=== PATIENT | female | born 1965 | race Asian ===

== ENCOUNTER 2018-08-06 06:39 | Emergency (ER) | payer BC ==
--- NOTE | 2018-08-06 07:02 | ED ---
Lower Extremity - HPI Summary HPI Summary: Medical leave and walk around patient presents with abrupt onset right knee pain while walking to the grass yesterday. She reports she heard a snap and then had difficulty walking on this leg due to pain. She denies numbness, tingling, weakness, instability but has pain at rest as well as with flexion and weightbearing. She tried to rest yesterday without relief. Took a Vicodin this morning and still having pain. She is not taking any anti-inflammatories. She denies any previous issues with this knee as well as lower extremity however she does have a history of extensive injury in her left lower extremity requiring surgical repair with rods, platelets, etc. She has been fairly active throughout her life and reports going to her computer trainer yesterday to perform her leg workout. No acute injury or pain however she has been sore. Denies recent use of fluoroquinolones however she did receive a steroid injection to the left shoulder 3 weeks ago for tendinopathy. Follows with Dr. Baugh. - History of Current Complaint Chief Complaint: EDExtremityLower Stated Complaint: RT ANKLE INJURY Time Seen by Provider: 08/06/18 07:01 Hx Obtained From: Patient Pain Intensity: 8 - Allergies/Home Medications Allergies/Adverse Reactions: Allergies Allergy/AdvReac Type Severity Reaction Status Date / Time acetaminophen [From Percocet] Allergy See Comment Verified 08/06/18 06:47 amoxicillin Allergy Hives Verified 08/06/18 06:47 ketorolac [From Toradol] Allergy See Comment Verified 08/06/18 06:47 oxycodone [From Percocet] Allergy See Comment Verified 08/06/18 06:47 Home Medications: Home Medications NK [No Home Medications Reported] 08/06/18 [History Confirmed 08/06/18] PMH/Surg Hx/FS Hx/Imm Hx Previously Healthy: Yes Endocrine/Hematology History: Reports: Hx Diabetes - better controlled w/ insulin Denies: Hx Anticoagulant Therapy Musculoskeletal History: Reports: Hx Orthopedic Injury - Lt shoulder tendinopathy; Lt LE trauma w/ surgical repair Sensory History: Reports: Hx Contacts or Glasses Opthamlomology History: Reports: Hx Contacts or Glasses Infectious Disease History: No Infectious Disease History: Denies: Traveled Outside the [place] in Last 30 Days - Family History Known Family History: Positive: Cardiac Disease, Diabetes - Social History Occupation: Employed Full-time - IT dept at [employer] Lives: With Family Alcohol Use: None Hx Substance Use: No Substance Use Type: Reports: None Hx Tobacco Use: Yes - quit 2 weeks ago Smoking Status (MU): Former Smoker Review of Systems Constitutional: Negative Negative: Fever, Chills, Fatigue Positive: no symptoms reported Positive: Arthralgia, Edema Skin: Negative Neurological: Negative Psychological: Normal All Other Systems Reviewed And Are Negative: Yes Physical Exam Triage Information Reviewed: Yes Vital Signs On Initial Exam: Initial Vitals Temp Pulse Resp BP Pulse Ox 98.0 F 95 16 125/82 98 08/06/18 06:42 08/06/18 06:42 08/06/18 06:42 08/06/18 06:42 08/06/18 06:42 Vital Signs Reviewed: Yes Appearance: Positive: Well-Appearing, No Pain Distress - at rest - discomfort w / ambulating and some ROM, Obese Skin: Positive: Warm, Skin Color Reflects Adequate Perfusion, Dry Head/Face: Positive: Normal Head/Face Inspection Eyes: Positive: EOMI, Conjunctiva Clear ENT: Positive: Hearing grossly normal, Pharynx normal - mild dry mouth (took vicodin this morning) Respiratory/Lung Sounds: Positive: Breath Sounds Present Cardiovascular: Positive: Pulses are Symmetrical in both Upper and Lower Extremities. Negative: Leg Edema Left, Leg Edema Right Musculoskeletal: Positive: Pain @ - mild popliteal fossa TTP and discomfort w/ patellar mobilization which creates subtle clicking; no andre erythema and temp = other leg, Other - ambulated into room w/o assistance - mildly antalgic gait Diagnostics - Vital Signs Vital Signs Temp Pulse Resp BP Pulse Ox 08/06/18 06:42 98.0 F 95 16 125/82 98 - Laboratory Lab Statement: Any lab studies that have been ordered have been reviewed, and results considered in the medical decision making process. Lower Extremity Course/Dx - Course Course Of Treatment: XR: report from radiology states no acute injury - appears to have some OA. This may have flaired or soft tissue injury could be causing her pain. She was given NSAID and offered crutches - pt declines. F/u w/ ortho if pain persists. - Diagnoses Provider Diagnoses: Right knee pain Discharge - Sign-Out/Discharge Documenting (check all that apply): Patient Departure - Discharge Plan Condition: Stable Disposition: HOME Patient Education Materials: Knee Pain (ED) Referrals: Héctor Baugh MD [Medical Doctor] - Additional Instructions: You appear to have knee pain 2ndry to an arthritis flair up or possible meniscal injury. It is important that you rest the leg but try to keep the joint moving w/ gentle range of motion. You may ice alternating with heat and continue ibuprofen with food for pain/swelling. Follow-up with Dr. Baugh next week if symptoms persist. *If in the meantime you develop numbness,tingling,weakness, fever, chills, return to the ED - Billing Disposition and Condition Condition: STABLE Disposition: Home
[2018-08-06] MEDS ORDERED: Ibuprofen TAB* 800 MG PO ONE (07:21)
--- NOTE | 2018-08-06 07:49 | RAD ---
HISTORY: Rt knee pain s/p injury COMPARISONS: None VIEWS: 4 , Frontal, lateral, axial, and oblique views of the right knee FINDINGS: BONE DENSITY: Normal. BONES: There is no displaced fracture. JOINTS: There is no arthropathy. There is no suprapatellar joint effusion or lipohemarthrosis. ALIGNMENT: There is no dislocation. SOFT TISSUES: Unremarkable. OTHER FINDINGS: None. IMPRESSION: NO ACUTE OSSEOUS INJURY. IF SYMPTOMS PERSIST, RECOMMEND REPEAT IMAGING.
[2018-08-06 08:14] VITALS: BP 138/83
== END 2018-08-06 08:13 | disposition home or self-care (01) ==
LOC: ED 06:39
DX: M25.561 Pain in right knee (principal); E11.9 Type 2 diabetes mellitus without complications; Z79.4 Long term (current) use of insulin; Z88.6 Allergy status to analgesic agent; Z88.5 Allergy status to narcotic agent; Z88.0 Allergy status to penicillin; Z87.891 Personal history of nicotine dependence
CPT/HCPCS: 99282; A9270-GY

== ENCOUNTER 2018-10-14 09:23 | Day surgery (SDC) | payer BC, OTHER ==
--- NOTE | 2018-09-27 08:49 | HP ---
PREOPERATIVE HISTORY AND PHYSICAL: DATE OF ADMISSION/SURGERY: 10/14/18 DATE OF OFFICE VISIT: 09/24/18 ATTENDING SURGEON: Héctor Baugh MD * (DICTATED BY TANYA FLORES) PROCEDURE: Right knee arthroscopy with partial meniscectomy. CHIEF COMPLAINT: Right knee. HISTORY OF PRESENT ILLNESS: Aleisha is a 53-year-old female who presents to the clinic for right knee pain due to a meniscus tear. She has failed conservative measures and therefore agreed to undergo a right knee arthroscopy with partial meniscectomy with Dr. Baugh on 10/14/18. PAST MEDICAL HISTORY: Positive for diabetes type 2 and history of heart attack. 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 She does not have stents. She denies prior complications with anesthesia. MEDICATIONS: monitor system. 1. Ezetimibe 10 mg 1 by mouth daily. 2. Humulin R 500 KwikPen 50 units twice a day before meals. 3. Attica 5/325 one every 12 hours as needed for pain. 4. Rosuvastatin 5 mg 1 by mouth at bedtime. 5. Adderall 20 mg 1 by mouth every morning. 6. Valacyclovir 500 mg 1 by mouth every day. 7. Naproxen 250 mg 1 by mouth every 12 hours as needed. ALLERGIES: TORADOL, PERCOCET, AMOXICILLIN, and BEE STINGS. FAMILY HISTORY: Positive for diabetes, heart disease, hypertension. Denies family history of DVT or PE. SOCIAL HISTORY: She lives with her daughter. She is an IT clinical sustainable systems analyst. She smokes less than a half pack per day. She denies alcohol consumption. She is right-hand dominant. REVIEW OF SYSTEMS: A 14-point review of systems was reviewed with the patient. Positive for current complaint, otherwise negative. Denies fevers, chills, chest pain, shortness of breath, history of DVT or PE, history of bleeding disorder. PHYSICAL EXAMINATION GENERAL: A 53-year-old well-developed, well-nourished female, in no acute distress. Alert and oriented x3. Appropriate mood and affect. Appropriate balance and coordination of the lower extremity. VITAL SIGNS: Height 63, weight 225, pulse 80, blood pressure 122/76, respiratory rate 16, BMI 39.9. HEENT: Normocephalic, atraumatic. PERRLA. Throat: Clear. NECK: Supple. PULMONARY: Lungs are clear to auscultation bilaterally. No wheezing, rhonchi, or rales. CARDIO: Regular rate and rhythm. S1, S2. No murmurs, gallops, or rubs. No edema. ABDOMEN: Positive bowel sounds, soft, nontender. NEURO: Alert and oriented x3. Cranial nerves grossly intact. MUSCULOSKELETAL: Right lower extremity, skin is intact. No warmth or erythema. Mild effusion. Tender over the medial joint line. Missing 3 degrees of extension, flexion to about 110. Stable varus and valgus stress. Stable Ermelinda. Negative posterior drawer. Calf soft, nontender. +2 DP pulse. Sensation is intact to light touch distally. DIAGNOSTIC STUDIES: MRI revealed stress reaction in the medial tibial plateau and posterior medial meniscus tear. IMPRESSION: Right knee medial meniscus tear. PLAN: The patient is scheduled to undergo a right knee arthroscopy with partial meniscectomy with Dr. Baugh on 10/14/18. Attica will be used for postop pain management. She will follow up 10 to 14 days postop for followup and suture removal. TANYA MCCOY [id number]/[facility] #: [id number] MTDD
[~2018-10-14 09:23] MED LIST: Buffered Lidocaine 0.9% SYRIN* 5 ML/SYR SYRINGE INTRADERM ONE; Dexamethasone IV* 4 MG/ML 1 ML (4 MG) IV SLOW PU ONE; Famotidine IV* 10 MG/ML 2 ML (20 mg) IV ONE; Lactated Ringers 1000 ML Bag* 1,000 ML IV SCH
[2018-10-14] MEDS ORDERED: Dexamethasone IV* 4 MG/ML 1 ML (4 MG) ONE (09:42)
[2018-10-14] MEDS ORDERED: Famotidine IV* 10 MG/ML 2 ML (20 mg) ONE (09:42)
[2018-10-14] MEDS ORDERED: Clindamycin 900 MG/D5W BAG(*) 900 MG/50 ML BAG IVPB ONE (09:43)
[2018-10-14] MEDS ORDERED: Midazolam* 1 MG/ML 5 ML VIAL (5 MG) ONE (11:40)
[2018-10-14] MEDS ORDERED: fentaNYL* 50 MCG/ML 2 ML VIAL (100 MCG VIAL) ONE ×3 (11:40→16:11)
[2018-10-14] MEDS ORDERED: Ondansetron INJ* 2 MG/ML VIAL ONE (11:41)
[2018-10-14] MEDS ORDERED: Propofol* 10 MG/ML 20 ML BTL ONE (11:41)
[2018-10-14] MEDS ORDERED: Chloroprocaine 2%* 20 ML VIAL ONE (11:43)
[2018-10-14] MEDS ORDERED: Lidocaine 1% MPF wEPI 200,000* 30 ML SDV ONE (13:42)
[2018-10-14] MEDS ORDERED: Ropivacaine* 2 MG/ML 20 ML VIAL (0.2%) ONE (13:42)
[2018-10-14] MEDS ORDERED: KETAMINE HCL* 50 MG/ML 10 ML VIAL ONE (13:45)
[2018-10-14] MEDS ORDERED: DiMENhydriNATE IV* 50 MG/ML VIAL IV PUSH PRN (14:19)
[2018-10-14] MEDS ORDERED: Ondansetron INJ* 2 MG/ML VIAL IV PRN (14:19)
[2018-10-14] MEDS ORDERED: HYDROmorphone INJ1* 1 MG/ML SYRINGE IV PRN (14:19)
[2018-10-14] MEDS ORDERED: Naloxone* 0.4 MG/ML 1 ML VIAL IV PRN (14:19)
[2018-10-14] MEDS: fentaNYL* 50 MCG/ML 2 ML VIAL (100 MCG VIAL) IV PRN ×2 (16:12→16:25)
[2018-10-14 16:32] VITALS: BP 132/72
--- NOTE | 2018-10-14 23:41 | OP ---
CC: Dr. Adrián Penny* OPERATIVE REPORT: DATE OF OPERATION: 10/14/18 - [facility] DATE OF : 61 SURGEON: Héctor Baugh MD DIRECTOR WORKERS COMPENSATION: TANYA Wadsworth An benefits assistant was needed for the entirety of the case to help with positioning, retraction, and utilized throughout all portions of the case and was utilized because of the size of this patient. ANESTHESIOLOGIST: Dr. Chung. ANESTHESIA: Spinal. PRE-OP DIAGNOSIS: Right knee medial meniscus tear. POST-OP DIAGNOSIS: Right knee medial and lateral meniscus tearing with synovitis anteriorly, medially, and laterally; and mild chondrosis of the medial and lateral compartments. OPERATIVE PROCEDURE: Right knee arthroscopy with partial medial and partial lateral meniscectomy, chondroplasty, as well as synovectomy. COMPLICATIONS: None. ESTIMATED BLOOD LOSS: Minimal. INDICATIONS: Aleisha Doll is a 53-year-old female who sustained a work-related injury in July 2018. She had medially based mechanical pain. She had failed conservative management. She had pain with walking. She was diagnosed with a root of the meniscus tear. Risks and benefits were discussed at length, included but were not limited to bleeding; infection; damage to nerves, vessels , surrounding structures; wound nonhealing; persistent pain; need for further surgery; scaring; stiffness; incomplete relief of symptoms; and risks of anesthesia. DESCRIPTION OF PROCEDURE: The patient was greeted in the preoperative area by the attending surgeon. Correct extremity was marked. Consent was confirmed. The patient was brought back to the operating suite, was placed in a supine position on the operating room table. She was then sat up and underwent a spinal anesthesia, after which she was properly positioned on the bed. Unsterile tourniquet was placed high on the proximal thigh, lateral post was positioned. The leg was then prepped and draped in the usual sterile fashion beginning with chlorhexidine soap, scrub, and alcohol wipe and a final prep with ChloraPrep. After appropriate surgical pause indicating site, side, procedure, administration of antibiotics, the knee was intra-articularly injected with 1% lidocaine with epi. The anterolateral portal was made sharply with an 11 blade. Scope was introduced into the joint. The joint was examined, there was abundant synovitis anteriorly. The anteromedial portal was made in an outside- in fashion. Shaver was used to debride out the significant synovitis that was present. There was plica medially and laterally, this was debrided back. The patellofemoral joint was examined, had grade 1 to 2 changes total with a mild amount of chondrosis and debrided back using shaver. The trochlea had grade 0 to 1 changes. Medial and lateral gutters were intact. Once the plica were removed, medial compartment was examined. There were grade 1 changes and obvious tear of the medial meniscus with unstable flap into the posterior aspect. Biters and will were then used to debride back the unstable flaps. There was obvious root tear that appeared to be at least a 3 mm gap. Even if the patient had elected to proceed with a repair, it would be very difficult to repair. Any unstable flaps were removed. All fluid and debris was removed. The knee was placed in [id number] position and the lateral meniscus had fraying at the root as well as along the bodies. This was debrided back using will. All loose debris was removed at this point. ACL and PCL were intact. The gutters were examined again. The knee was sterilely lavaged to remove any loose debris. Portals were irrigated and closed with 3-0 nylon. The knee was intra-articularly injected with 0.2% ropivacaine. Sterile dressings were applied. A Cryo/Cuff was applied. She was awoken from anesthesia, transferred to PACU in stable condition. POSTOPERATIVE PLAN: She will be discharged on pain medication. DVT prophylaxis was considered but deferred due to no previous personal or family history. She will be on a walker for the next 3 to 5 days. I will see the patient back in 10 to 14 days. [id number]/[facility] #: [id number] ILDA
== END 2018-10-14 17:08 | disposition home or self-care (01) ==
LOC: OR 09:23
PROVIDERS: ATTEND Orthopaedic Surgery
DX: S83.241A Other tear of medial meniscus, current injury, right knee, initial encounter (principal); S83.281A Other tear of lateral meniscus, current injury, right knee, initial encounter; X58.XXXA Exposure to other specified factors, initial encounter; Y92.59 Other trade areas as the place of occurrence of the external cause; Y99.0 Civilian activity done for income or pay; M93.961 Osteochondropathy, unspecified, right lower leg; F17.210 Nicotine dependence, cigarettes, uncomplicated; E11.9 Type 2 diabetes mellitus without complications; Z79.4 Long term (current) use of insulin; I25.2 Old myocardial infarction; F90.9 Attention-deficit hyperactivity disorder, unspecified type; E66.9 Obesity, unspecified
CPT/HCPCS: J1100; J2001; J2250; J2400; J2405; J2704; J2795; J3010

== ENCOUNTER 2021-08-20 09:32 | Inpatient (IN) ==
[~2021-08-20 09:32] MED LIST changes: -Buffered Lidocaine 0.9% SYRIN* 5 ML/SYR SYRINGE INTRADERM ONE; +Buffered Lidocaine 1% SYRIN 1 ml INTRADERM ONE; -Dexamethasone IV* 4 MG/ML 1 ML (4 MG) IV SLOW PU ONE; +DiMENhydriNATE IV 50 mg/ml 1 ml VIAL IV PUSH ONE; -Famotidine IV* 10 MG/ML 2 ML (20 mg) IV ONE; +HYDROmorphone 1 MG/1 ML SYRINGE IV PRN; -Lactated Ringers 1000 ML Bag* 1,000 ML IV SCH; +Lactated Ringers 1000 ml BAG 1,000 ML IV SCH; +Naloxone 0.4 mg VIAL 0.4 mg/ml 1 ml VIAL IV PRN; +Ondansetron 4 mg VIAL 2 MG/ML 2 ml VIAL IV PRN; +fentaNYL 100 mcg/2 ml 50 MCG/ML VIAL IV PRN
[2021-08-20] MEDS ORDERED: Heparin 5000 UNITS/ML 1 mL VIAL ONE (09:59)
[2021-08-20] MEDS ORDERED: Clindamycin 900 MG/D5W BAG 900 MG/50 ML BAG IVPB ONE (10:00)
[2021-08-20] MEDS ORDERED: Buffered Lidocaine 1% SYRIN 1 ml INTRADERM ONE (10:00)
[2021-08-20] MEDS ORDERED: Acetaminophen IV 1 GM/100ML 0 ML IV ONE (13:15)
[2021-08-20] MEDS ORDERED: Rocuronium 50 mg VIAL 10 mg/ml 5 ml VIAL (50 mg) ONE (13:15)
[2021-08-20] MEDS ORDERED: Ondansetron 4 mg VIAL 2 MG/ML 2 ml VIAL ONE ×2 (13:19→17:03)
[2021-08-20] MEDS ORDERED: Dexamethasone IV 4 MG/ML VIAL 1 ml VIAL ONE (13:19)
[2021-08-20] MEDS ORDERED: fentaNYL 100 mcg/2 ml 50 MCG/ML VIAL ONE ×2 (13:19→14:44)
[2021-08-20] MEDS ORDERED: Lidocaine 2% PF 5 ML VIAL ONE (13:19)
[2021-08-20] MEDS ORDERED: Midazolam 2 mg/2 ml VIAL 1 mg/ml 2 ml VIAL (2 mg) ONE (13:20)
[2021-08-20] MEDS ORDERED: Propofol 10 MG/ML 20 ML BTL ONE (13:21)
[2021-08-20] MEDS ORDERED: Lidocaine 1% w EPI 1:200,000 SDV 30 ML VIAL ONE (13:38)
[2021-08-20] MEDS ORDERED: Bupivacaine 0.5% SDV PF 30ML VIAL ONE (13:38)
[2021-08-20] MEDS ORDERED: Labetalol IV 5 MG/ML 20 ml VIAL ONE (15:13)
[2021-08-20] MEDS ORDERED: EPHEDrine (Pressors) 50 MG/ML VIAL ONE (15:43)
[2021-08-20] MEDS ORDERED: Phenylephrine IV 10 MG/ML 1 ml VIAL ONE (16:09)
[2021-08-20] MEDS ORDERED: Sugammadex 500 MG/5 ML 5 ml VIAL IV PUSH ONE (16:15)
[2021-08-20] MEDS ORDERED: Morphine 10 MG/ML VIAL (1 ml) ONE (16:28)
[2021-08-20] MEDS ORDERED: diPHENhydraMINE IV 50 MG/ML 1 ml VIAL (BENADRYL) SLOW PUSH PRN (16:49)
[2021-08-20] MEDS ORDERED: Dextrose 50% Syringe 50 ml 25 GM/50 ML SYRINGE IV PUSH PRN (17:14)
[2021-08-20] MEDS ORDERED: HYDROmorphone 0.5 MG/0.5 ML SYRINGE ONE (18:17)
[2021-08-20] MEDS: HYDROmorphone 0.5 MG/0.5 ML SYRINGE IV SLOW PU PRN (18:28)
[2021-08-20] MEDS ORDERED: Senna TAB 8.6 mg TAB PO PRN (18:49)
[2021-08-20] MEDS: HYDROmorphone 1 MG/1 ML SYRINGE IV SLOW PU PRN (22:16)
[2021-08-20] MEDS: Heparin 5000 UNITS/ML 1 mL VIAL SUBCUT SCH (22:16)
[2021-08-20] MEDS: Famotidine IV 10 MG/ML 2 ml VIAL (20 mg) IV SLOW PU SCH (22:17)
[2021-08-20] MEDS: Triamcinolone 0.5% OINT 1 TUBE TOPICAL SCH (22:17)
[2021-08-20] MEDS: Ondansetron 4 mg VIAL 2 MG/ML 2 ml VIAL IV PRN (22:29)
[2021-08-21] MEDS: HYDROmorphone 1 MG/1 ML SYRINGE IV SLOW PU PRN (03:23)
[2021-08-21] MEDS: Lactated Ringers 1000 ml BAG 1,000 ML IV SCH ×4 (03:23→23:03)
[2021-08-21] MEDS: Heparin 5000 UNITS/ML 1 mL VIAL SUBCUT SCH ×3 (06:27→21:19)
[2021-08-21] MEDS: HYDROmorphone 0.5 MG/0.5 ML SYRINGE IV SLOW PU PRN ×3 (06:28→21:18)
[2021-08-21] MEDS: Triamcinolone 0.5% OINT 1 TUBE TOPICAL SCH ×2 (08:58→21:19)
[2021-08-21] MEDS: Famotidine IV 10 MG/ML 2 ml VIAL (20 mg) IV SLOW PU SCH ×2 (08:59→21:18)
[2021-08-21] MEDS ORDERED: Amphetamine/Dextroam ER 10(NF) 10 mg CAP.ER PO SCH (09:00)
[2021-08-21 10:57] LABS: ABS Basophils 0.1 10^3/ul (0-0.2); ABS Lymphocytes 1.5 10^3/ul (1.0-4.8); ABS Monocytes 1.1 10^3/ul (0-0.8); ABS Neutrophils 10.5 10^3/ul (1.5-7.7); Hematocrit 37 % (35-47); Hemoglobin 12.9 g/dL (12.0-16.0); Lymphocyte % 11.4 %; Mean Corpuscular HGB Conc 35 g/dL (31-36); Mean Corpuscular Hemoglobin 31 pg (27-31); Mean Corpuscular Volume 88 fL (80-97); Mean Platelet Volume 9.3 fL (7.4-10.4); Platelet Count 239 10^3/uL (150-450); Red Blood Count 4.19 10^6 /uL (3.70-4.87); Red Cell Distribution Width 13 % (10-15); White Blood Count 13.2 10^3/uL (3.5-10.8)
[2021-08-21 11:13] LABS: Albumin 4.1 g/dL (3.2-5.2); Albumin/Globulin Ratio 1.5 (1-3); Calcium 9.2 mg/dL (8.6-10.3); Globulin 2.7 g/dL (2-4); Magnesium 1.7 mg/dL (1.9-2.7); Total Bilirubin 0.6 mg/dL (0.2-1.0); Total Protein 6.8 g/dL (6.4-8.9)
[2021-08-21] MEDS ORDERED: Magnesium Sulfate 2 gm BAG 2 GM/50 ML BAG IVPB ONE (13:05)
[2021-08-21] MEDS: HYDROcodone/ACET. 7.5/325 LIQ 15 ML UDC PO PRN (15:36)
[2021-08-21] MEDS ORDERED: D5W 1/2 NS KCl 20 meq 1000 ml 1,000 ML IV SCH (17:00)
[2021-08-21] MEDS ORDERED: Fluticasone NASAL SPRAY 50MCG 16 gm SPRAY BTL INTRANASAL SCH (18:00)
[2021-08-21] MEDS: Ondansetron 4 mg VIAL 2 MG/ML 2 ml VIAL IV PRN (21:26)
[2021-08-22] MEDS: Heparin 5000 UNITS/ML 1 mL VIAL SUBCUT SCH ×2 (05:40→13:41)
[2021-08-22] MEDS: Lactated Ringers 1000 ml BAG 1,000 ML IV SCH (05:43)
[2021-08-22 05:46] LABS: ABS Lymphocytes 2.4 10^3/ul (1.0-4.8); ABS Monocytes 1.1 10^3/ul (0-0.8); ABS Neutrophils 6.8 10^3/ul (1.5-7.7); Eosinophil % 0.3 %; Hematocrit 35 % (35-47); Hemoglobin 12.4 g/dL (12.0-16.0); Mean Corpuscular HGB Conc 35 g/dL (31-36); Mean Corpuscular Hemoglobin 31 pg (27-31); Mean Corpuscular Volume 88 fL (80-97); Mean Platelet Volume 9.3 fL (7.4-10.4); Nucleated Red Blood Cells % 0.1; Platelet Count 207 10^3/uL (150-450); Red Blood Count 4.02 10^6 /uL (3.70-4.87); Red Cell Distribution Width 13 % (10-15); White Blood Count 10.3 10^3/uL (3.5-10.8)
[2021-08-22 06:01] LABS: Calcium 8.4 mg/dL (8.6-10.3); Magnesium 1.7 mg/dL (1.9-2.7); Potassium 3.7 mmol/L (3.5-5.0)
[2021-08-22] MEDS: HYDROcodone/ACET. 7.5/325 LIQ 15 ML UDC PO PRN (07:11)
[2021-08-22] MEDS ORDERED: Magnesium Sulfate 2 gm BAG 2 GM/50 ML BAG IVPB ONE (08:17)
[2021-08-22] MEDS: Famotidine IV 10 MG/ML 2 ml VIAL (20 mg) IV SLOW PU SCH (08:50)
[2021-08-22] MEDS: Triamcinolone 0.5% OINT 1 TUBE TOPICAL SCH (08:54)
[2021-08-22] MEDS ORDERED: Insulin GLARGINE 100 un/ml 10 ml VIAL SUBCUT ONE (09:08)
[2021-08-22 11:10] VITALS: BP 120/73
== END 2021-08-22 14:40 | disposition home or self-care (01) | DRG 403 ==
LOC: AA 09:32 → SSU 17:58
PROVIDERS: ADMIT Surgery; ATTEND Surgery